=== PATIENT | female | born 1950 | race Two or more races ===

== ENCOUNTER 2020-10-12 11:52 | Inpatient (IN) | payer OTHER ==
[~2020-10-12] VITALS: Ht 165.1 cm; Wt 5.0 kg
[2020-10-12] MEDS ORDERED: CRESTOR5 MG (12:06)
[2020-10-13] MEDS ORDERED: ZOLPIDEM TARTRA10 MG (10:50)
[2020-10-13] MEDS ORDERED: METRONIDAZOLE500 MG (10:50)
[2020-10-13] MEDS ORDERED: PANTOPRAZOLE SO40 MG (10:50)
== END 2020-10-15 18:15 | disposition home or self-care (01) | DRG 372 ==
LOC: ER 11:52 → SEC-K 20:34 → SURG-SUITE 20:34
PROVIDERS: ADMIT Colon & Rectal Surgery; ATTEND Colon & Rectal Surgery
PROC: BW2GZZZ Computerized Tomography (CT Scan) of Pelvic Region (ICD-10-PCS; principal; 2020-10-12)
PROC: 02HV33Z Insertion of Infusion Device into Superior Vena Cava, Percutaneous Approach (ICD-10-PCS; 2020-10-15)
DX: K35.890 Other acute appendicitis without perforation or gangrene (principal); A04.72 Enterocolitis due to Clostridium difficile, not specified as recurrent; E03.9 Hypothyroidism, unspecified; K36 Other appendicitis; Z20.822 Contact with and (suspected) exposure to COVID-19